=== PATIENT | female | born 1955 | race Caucasian/White ===

== ENCOUNTER → 2016-07-20 | Outpatient (CLI) | payer BC, OTHER ==
[~2016-07-20] VITALS: Ht 160 cm; Wt 127.0 kg
[~2016-07-20] MED LIST: CADUET 5/201 TABLET PO; FLONASE16 G1 BOTH NARES; LISINOPRIL-HCT1 EAC3 PO; MIRALAX255 GM PO; MOBIC15 MG PO; PROAIR HFA8.5 GM IH; SYNTHROID25 MCG PO; VAGIFEM10 MCG VG; VITAMIN C1000 MG PO; VITAMIN D34000 UNIT PO
== END | disposition home or self-care (01) ==
LOC: AMB 14:33
PROC: 0DB68ZX Excision of Stomach, Via Natural or Artificial Opening Endoscopic, Diagnostic (ICD-10-PCS; principal; 2016-07-20)
DX: Z01.818 Encounter for other preprocedural examination (principal); R13.10 Dysphagia, unspecified; K44.9 Diaphragmatic hernia without obstruction or gangrene; K25.9 Gastric ulcer, unspecified as acute or chronic, without hemorrhage or perforation; K31.7 Polyp of stomach and duodenum; K29.70 Gastritis, unspecified, without bleeding; I10 Essential (primary) hypertension; E78.5 Hyperlipidemia, unspecified; Z85.528 Personal history of other malignant neoplasm of kidney; G47.30 Sleep apnea, unspecified; E66.3 Overweight; Z68.43 Body mass index [BMI] 50.0-59.9, adult; Z88.0 Allergy status to penicillin
CPT/HCPCS: 80048 91; 88305; 88342 TC; 93005; J2250

== ENCOUNTER 2017-02-24 09:16 | Emergency (ER) | payer BC, OTHER ==
[~2017-02-24] VITALS: Ht 162.6 cm; Wt 113.6 kg
[2017-02-24] MEDS ORDERED: COLCHICINE0.6 M1 PO (10:32)
[2017-02-24 11:01] VITALS: BP 113/56
== END 2017-02-24 11:01 | disposition home or self-care (01) ==
LOC: EME 09:16
DX: M10.9 Gout, unspecified (principal); I10 Essential (primary) hypertension; E78.00 Pure hypercholesterolemia, unspecified; Z98.84 Bariatric surgery status; Z88.0 Allergy status to penicillin
CPT/HCPCS: 99281; 99283